=== PATIENT | male | born 1985 | race Caucasian/White ===

== ENCOUNTER 2018-11-05 10:05 | Emergency (ER) | payer OTHER ==
[~2018-11-05] VITALS: Ht 180.3 cm; Wt 97.1 kg
[2018-11-05] MEDS ORDERED: AMLO10TA PO (10:10)
--- NOTE | 2018-11-05 10:44 | REP ---
Clinical: Urinary retention. Pelvic/bladder pain. Technique: Axial noncontrast images from the lung bases to the pubic symphysis with coronal and sagittal re-formations. Findings: Lung bases are clear. Liver, spleen, pancreas, gallbladder, bilateral adrenal glands and kidneys are normal. The enteric system is without obstruction or acute inflammatory process. Normal terminal ileum and appendix identified in the right lower quadrant. This demonstrates normal bladder and age appropriate prostate/seminal vesicles with central 2 mm calcification. No pelvic fluid or ascites. No free air. No adenopathy. Small fat containing periumbilical hernia noted. Musculoskeletal structures are intact. Impression: 1. No obvious acute abdominopelvic pathology appreciated. 2. Small calcifications within the central portion of the prostate gland should be correlated with physical examination to exclude urinary stones in the proximal prostatic urethra. Electronically Signed by Vargas Kent MD 11/05/2018 10:37 A
[2018-11-05 11:26] LABS: BASO % 0.6 % (0.0-1.0); EOS # 0.1 10^3/uL (0.0-0.50); EOS % 0.7 % (0.0-3.0); HEMATOCRIT 48.2 % (42.0-52.0); HEMOGLOBIN 16.8 g/dl (13.5-17.5); LYMPH # 1.9 10^3/uL (1.5-4.5); LYMPH % 28.3 % (24.0-44.0); MEAN CORPUSCULAR HEMOGLOBIN 29.6 pg (27.0-33.0); MEAN CORPUSCULAR HGB CONC 34.9 g/dl (32.0-36.5); MONO # 0.5 10^3/uL (0.0-0.8); MONO % 6.9 % (0.0-5.0); NEUTROPHILS # 4.3 10^3/uL (1.8-7.7); NEUTROPHILS % 63.2 % (36.0-66.0); PLATELET COUNT, AUTOMATED 229 10^3/uL (150-450); RED BLOOD COUNT 5.67 10^6/uL (4.30-6.10); WHITE BLOOD COUNT 6.8 10^3/uL (4.0-10.0)
[2018-11-05 11:45] LABS: ALBUMIN 4.2 GM/DL (3.2-5.2); ALT/SGPT 62 U/L (12-78); BILIRUBIN,TOTAL 0.3 MG/DL (0.2-1.0); BLOOD UREA NITROGEN 11 MG/DL (7-18); CALCIUM LEVEL 9.1 MG/DL (8.5-10.1); CARBON DIOXIDE LEVEL 28 MEQ/L (21-32); CHLORIDE LEVEL 107 MEQ/L (98-107); CREATININE FOR GFR 0.83 MG/DL (0.70-1.30); GLOMERULAR FILTRATION RATE > 60.0 (>60); GLUCOSE, FASTING 96 MG/DL (70-100); POTASSIUM SERUM 4.2 MEQ/L (3.5-5.1); SODIUM LEVEL 143 MEQ/L (136-145); TOTAL PROTEIN 7.7 GM/DL (6.4-8.2)
[2018-11-05] MEDS ORDERED: FLOM0.4C39 PO (12:23)
[2018-11-05] MEDS ORDERED: CIPR-249 PO (12:23)
[2018-11-05 12:25] VITALS: BP 156/95
[2018-11-05] MEDS ORDERED: TAMSULOSIN 0.4 MG CAP PO ONE (12:30)
[2018-11-05] MEDS ORDERED: CIPROFLOXACIN 500 MG TAB PO ONE (12:30)
[2018-11-06 18:41] LABS: CHLAMYDIA DNA AMPLIFICATION NEGATIVE (NEGATIVE); GC DNA AMPLIFICATION NEGATIVE (NEGATIVE)
== END 2018-11-05 12:43 | disposition home or self-care (01) ==
LOC: M ED 10:05
DX: R33.9 Retention of urine, unspecified (principal); N42.89 Other specified disorders of prostate; N41.9 Inflammatory disease of prostate, unspecified; R21 Rash and other nonspecific skin eruption; N48.89 Other specified disorders of penis; Z79.899 Other long term (current) drug therapy